=== PATIENT | male | born 1985 | race Caucasian/White ===

== ENCOUNTER 2021-12-18 05:16 | Day surgery (SDC) | payer MEDICARE, MEDICAID, SELFPAY ==
[2021-12-18] VITALS (7 sets, daily range): BP systolic 92–110; BP diastolic 65–71; PULSE 68–81; RESP 15–18; TEMP 36.2–36.6; O2SAT 94–100; BMI 26.2
--- NOTE | 2021-12-18 06:00 | HP.PCM_ITS ---
History and Physical Date of Admission: 12/18/21 35 M who presents to the office today for for evaluation of esophageal dysphagia.? 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 He has multiple other psychiatric disorders that contributes to him regurgitating food resulting in poor dentition, esophageal dysphagia, erosive esophagitis.? Recently was started on Depakote.? 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 He denies any chest pain but does complain of intermittent headaches.? He complains of intermittent nausea.? He denies any chest pain or shortness of breath.? He has no pre-existing history of liver disease.? There is no family history liver disease. All other 16 review of systems are negative except as per body mentioned HPI ROS Const Constitutional: No anorexia, fatigue, fever(s), weight change or sleep problems Eyes Eyes: No change in vision ENT ENT: No abnormal hearing, difficulty swallowing, mouth lesions, tongue swelling or throat swelling Resp Respiratory: No cough or shortness of breath Cardio Cardiology: No chest pain at rest, chest pain with exertion, shortness of breath or dyspnea on exertion Gastro GI: No difficulty swallowing Genitourinary Male: No difficulty urinating or burning urination Musc Musculoskeletal: No joint pain, joint swelling, muscle weakness or decreased muscle mass Skin Skin: No hair loss in leg, yellowing of the eye, itchy eyes, rash, skin ulcer or skin swelling Neuro Neurology: No abnormal hearing, abnormal movements, confusion, unsteady gait/balance or memory loss Psych Psychiatric: No anxiety, No confusion and No memory loss Endo Endocrine: No fatigue or weight change Aller/Imm Allergy/Immunologic: No itchy eyes, throat swelling or tongue swelling Ced/Lymp Hematologic/Lymphatic: No easy bleeding, easy bruising or enlarged lymph nodes Exam Const General: cooperative and comfortable Nutritional Appearance: average body habitus and well nourished HENMT Head: normal to inspection Ears: hearing grossly normal bilaterally Nose: external nose normal Face and sinus: normal facial exam Mouth: oral mucosae normal Throat: posterior oropharynx normal Eyes General: appearance normal, both eyes and all related structures Neck Neck: normal visual inspection Chest Chest palpation & inspection: normal inspection of the chest and normal palpation of entire chest wall Resp Effort & Inspection: normal respiratory effort Auscultation: Bilateral: Clear to Auscultation Cardio Palpation: normal PMI Rate: regular rate Rhythm: regular rhythm GI Inspection: normal to inspection Auscultation: normal bowel sounds Percussion: normal to percussion Palpation: no hepatosplenomegaly Skin General: no rashes or lesions noted Neuro General: patient alert Extrem General: normal to inspection Psych Affect: normal affect Assessment and Plan Assessment and Plan (1) Gastroesophageal reflux disease: ?Plan: Patient likely has gastroesophageal reflux disease secondary to regurgitation causing her esophagitis.? Also differential diagnosis would include erosive esophagitis secondary to bile acid reflux, eosinophilic esophagitis, esophageal dysmotility syndrome.? He should undergo an upper endoscopy evaluate of his upper GI tract.? His mother and pastoral worker were explained alternatives, risk, benefits including not withstanding bleeding, infection, sepsis, perforation, need for Cristian to .? He will have an ASA of 1. (2) Hyperammonemia: ?Status:?Acute ?Plan: Hyperammonia anemia possibly secondary to uric acid cycle deficiency, underlying liver disease, medication induced.? We will check biochemical profile for hemochromatosis, Jaydon's disease, autoimmune hepatitis, alpha-1 antitrypsin disease, we will recheck an ammonia level and orotic acid level in the urine. ? ? ? Orders: Orders Comprehensive Metabolic Profil Today E72.20 - Disorder of urea cycle metabolism, unspecified ? Ferritin Today D64.9 - Anemia, unspecified, E72.20 - Disorder of urea cycle metabolism, unspecified ? Prothrombin Time w/INR Today D68.59 - Other primary thrombophilia, E72.20 - Disorder of urea cycle metabolism, unspecified ? ANCA Today E72.20 - Disorder of urea cycle metabolism, unspecified ? Celiac Disease Profile Today E72.20 - Disorder of urea cycle metabolism, unspecified ? Ceruloplasmin Today E72.20 - Disorder of urea cycle metabolism, unspecified ? Copper, Serum or Plasma Today E72.20 - Disorder of urea cycle metabolism, unspecified ? Haptoglobin Today E72.20 - Disorder of urea cycle metabolism, unspecified ? Trion Today E72.20 - Disorder of urea cycle metabolism, unspecified ? Valproic Acid (Depakene) Level Today E72.20 - Disorder of urea cycle metabolism, unspecified ? Ammonia Today E72.20 - Disorder of urea cycle metabolism, unspecified ? Miscellaneous Lab Procedure Today E72.20 - Disorder of urea cycle metabolism, unspecified ? I have examined the patient and the H&P has been reviewed. There are no clinical changes since date of exam.
[2021-12-18] MEDS: Lactated Ringers 1,000 ML 15 ML IV (06:11)
--- NOTE | 2021-12-18 06:30 | EGD_PTH ---
PATIENT: BAKARI GARDNER LOC: EN U#:[id number] AGE/SX: 35/M ROOM: RE12/18/[address]: Dr. Aristides Rodriguez DO : 1985 BED: DIS: 12/18/2021 SPEC #: [id number] RECD: 12/18/21 14:29 STATUS: YULISSA ABDON #: [id number] ONESIMO: 12/18/21 06:[address]: Aristides Rodriguez DEPT: SURGICAL PATHOLOGY RECD BY: Keyla Helm ENTERED: 12/19/21 08:55 SP TYPE: EGD BIOPSY WILIAM DR: Dr. Josseline Washington DO Tissues: A - Duodenum, NOS B - Esophagus, NOS Procedures: Special Stain Group II Surgery Specimen Level IV Alcian Blue/PAS (control) HEADER OPERATION: EGD with biopsies, dilation (MAC) PRE-OP DIAGNOSIS: GERD, hyperammonemia TISSUE SUBMITTED: A ? Duodenum biopsy, B ? Distal esophagus biopsy MICROSCOPIC DIAGNOSIS A. Duodenum, biopsy: No pathologic change. B. Distal esophagus, biopsy: Gastroesophageal junctional mucosa with chronic inflammation. Focal changes of reflux. No evidence of goblet cell metaplasia. See comment. AM:amanda 12/20/2021 COMMENT B. Alcian blue/PAS stain with matched control supports the above diagnosis. MICROSCOPIC DESCRIPTION Slides are reviewed. GROSS DESCRIPTION A - Received in fixative is one container labeled with the patient's name and designated duodenum. The specimen consists of two irregular fragments of light loja soft tissue that in aggregate measure 0.6 x 0.6 x 0.1 cm. The specimen is totally submitted in one cassette. B - Received in fixative is one container labeled with the patient's name and designated distal esophagus. The specimen consists of two irregular fragments of light loja soft tissue that in aggregate measure 1 x 0.3 x 0.1 cm. The specimen is totally submitted in one cassette. / AM:amanda 12/19/2021 TC:3 CPT: 56152 x2, 05138
--- NOTE | 2021-12-18 06:59 | OP.EGD_ITS ---
Patient Name: Oh Joe Procedure Date: 12/18/2021 6:17 AM Date of : 1985 Age: 35 Procedure: Upper GI endoscopy Indications: Dysphagia Providers: Aristides Rodriguez DO Medicines: Monitored Anesthesia Care Patient Profile: This is a 35 year old male. Refer to note in patient chart for documentation of history and physical. Patient has symptoms of acute dysphagia and dysphagia with solids. Complications: No immediate complications. Procedure: Pre-Anesthesia Assessment: - Prior to the procedure, a History and Physical was performed, and patient medications and allergies were reviewed. The risks and benefits of the procedure and the sedation options and risks were discussed with the patient. All questions were answered and informed consent was obtained. Patient identification and proposed procedure were verified by the physician in the pre-procedure area. Mental Status Examination: alert and oriented. Airway Examination: normal oropharyngeal airway and neck mobility. Respiratory Examination: clear to auscultation. CV Examination: normal. Prophylactic Antibiotics: The patient does not require prophylactic antibiotics. Prior Anticoagulants: The patient has taken no previous anticoagulant or antiplatelet agents. ASA Grade Assessment: II - A patient with mild systemic disease. After reviewing the risks and benefits, the patient was deemed in satisfactory condition to undergo the procedure. The anesthesia plan was to use monitored anesthesia care (MAC). Immediately prior to administration of medications, the patient was re-assessed for adequacy to receive sedatives. The heart rate, respiratory rate, oxygen saturations, blood pressure, adequacy of pulmonary ventilation, and response to care were monitored throughout the procedure. The physical status of the patient was re-assessed after the procedure. After obtaining informed consent, the endoscope was passed under direct vision. Throughout the procedure, the patient's blood pressure, pulse, and oxygen saturations were monitored continuously. The gastroscope was introduced through the mouth, and advanced to the second part of duodenum. The upper GI endoscopy was accomplished without difficulty. The patient tolerated the procedure well. Scope In: 6:45:18 AM Scope Out: 6:51:22 AM Total Procedure Duration Time 0 hours 6 minutes 4 seconds Findings: The Z-line was irregular and was found 38 cm from the incisors. Biopsies were taken with a cold forceps for histology. Verification of patient identification for the specimen was done. Estimated blood loss was minimal. A moderate Schatzki ring was found in the upper third of the esophagus. A guidewire was placed and the scope was withdrawn. Dilation was performed with a Savary dilator with no resistance at 60 Fr. The dilation site was examined following endoscope reinsertion and showed moderate improvement in luminal narrowing. A small hiatal hernia was present. A few small sessile polyps with no bleeding and no stigmata of recent bleeding were found in the gastric fundus. Patchy mildly erythematous mucosa without active bleeding and with no stigmata of bleeding was found in the second portion of the duodenum. Biopsies were taken with a cold forceps for histology. Verification of patient identification for the specimen was done. Estimated blood loss was minimal. Impression: - Z-line irregular, 38 cm from the incisors. Biopsied. - Moderate Schatzki ring. Dilated. - Small hiatal hernia. - A few gastric polyps. - Erythematous duodenopathy. Biopsied. Recommendation: - Discharge patient to home. - Resume previous diet. - Continue present medications. - Await pathology results. Procedure Code(s): --- Professional --- 68492, Esophagogastroduodenoscopy, flexible, transoral; with insertion of guide wire followed by passage of dilator(s) through esophagus over guide wire 08180, 59,51, Esophagogastroduodenoscopy, flexible, transoral; with biopsy, single or multiple CPT copyright 2017 [employer]. All rights reserved. The codes documented in this report are preliminary and upon landscape painter review may be revised to meet current compliance requirements. Aristides Rodriguez DO 12/18/2021 6:58:57 AM This report has been signed electronically. Number of Addenda: 0 Note Initiated On: 12/18/2021 6:17 AM
--- NOTE | 2021-12-18 07:00 | OP.CCLET_ITS ---
12/18/2021 Josseline Washington Re : Upper GI endoscopy procedure for Oh Joe Dear Felix This procedure was performed on Saturday, December 18, 2021. My impressions and recommendations are as follows: Impressions : - Z-line irregular, 38 cm from the incisors. Biopsied. - Moderate Schatzki ring. Dilated. - Small hiatal hernia. - A few gastric polyps. - Erythematous duodenopathy. Biopsied. Recommendations : - Discharge patient to home. - Resume previous diet. - Continue present medications. - Await pathology results. My findings are described in the full procedure note, which is enclosed. If I can be of further assistance, please feel free to contact me at . Sincerely, Aristides Rodriguez, 12/18/2021 6:58:57 AM This report has been signed electronically.
== END 2021-12-18 07:48 | disposition home or self-care (01) ==
LOC: EN 05:18 → AC 05:19
PROVIDERS: PCP Family Medicine; Referring Provider Family Medicine; Visit Provider Internal Medicine Gastroenterology
PROC: 0DJ08ZZ Inspection of Upper Intestinal Tract, Via Natural or Artificial Opening Endoscopic (ICD-10-PCS; CPT 43235; principal; 2021-12-18 06:25)
DX: K44.9 Diaphragmatic hernia without obstruction or gangrene (principal); K22.2 Esophageal obstruction; K31.89 Other diseases of stomach and duodenum; K21.00 Gastro-esophageal reflux disease with esophagitis, without bleeding; K31.7 Polyp of stomach and duodenum; Z79.899 Other long term (current) drug therapy; I10 Essential (primary) hypertension
CPT/HCPCS: 43248; 43239; 88305; 88313; J7120; C1769; J2405

== ENCOUNTER → 2022-02-24 | Outpatient (CLI) | payer MEDICARE, MEDICAID, SELFPAY ==
--- NOTE | 2022-02-24 09:13 | NM_ITS ---
CLINICAL: 36 year old male with history of gastroesophageal reflux. SEMI-SOLID PHASE 99m Tc SULFUR COLLOID GASTRIC EMPTYING STUDY COMPARISON: None available FINDINGS: The patient was administered 1.1 mCi of 99m Tc sulfur colloid mixed with oatmeal and consumed per os. Image acquisitions in the anterior-posterior projections were obtained for 60 minutes. There is prompt visualization of the stomach. There is no gastroesophageal reflux identified. The T ? raw data emptying was calculated to be 23.78 minutes, (Normal: 12-56 minutes). NM/Gastric Emptying Study IMPRESSION: 1. NORMAL 99m Tc sulfur colloid semi-solid phase (oatmeal) gastric emptying imaging examination. A. There is normal and preserved semi-solid phase gastric emptying compared to normal controls. (Tova et al, J Nucl Med Tech 38: 186, 2010). Electronically Signed: Manny Lambert, at 8:13 EST ,
== END | disposition home or self-care (01) ==
PROVIDERS: PCP Family Medicine; Visit Provider Internal Medicine Gastroenterology
DX: K21.9 Gastro-esophageal reflux disease without esophagitis (principal)
CPT/HCPCS: 78264; A9541

== ENCOUNTER → 2022-06-04 | Outpatient (CLI) | payer MEDICARE, MEDICAID, SELFPAY ==
--- NOTE | 2022-06-04 14:59 | ST.MBS ---
Modified Barium Swallow - Patient Information Study Date: 06/04/22 Study Time: 13:00 Direct Billable Minutes: 87 Total Minutes procedure & reportin Diagnosis: Gastric reflux (K21.9) Referring Physician: Aristides Rodriguez Reason for Referral: Objectively assess swallow function, assess risk for aspiration, and determine recommendations for least restrictive diet textures and compensatory strategies to improve safety of swallow. Medical History: The patient is a 36-year-old male with PMH including bipolar disorder, bulimia, cognitive disorder, diverticulitis, HTN, injury of head and neck, non-smoker, schizophrenia, thyroid disease, and TBI (SEE EMR for full PMH). He was referred for MBSS from epic cadence specialists, Dr. Rodriguez, due to concern for difficulty swallowing and aspiration. Per staff member, Waqas, patient experiences regurgitation of meals daily at his correction, [place], in [place]. Per staff member, no concerns for s/s of aspiration or choking when eating and drinking at the home. Current Diet Ordered: Regular textures / Thin liquids Dentition: Natural Teeth, Missing Teeth Mental Status: Impaired - Unable to provide history, frequent repetition required for following simple commands Respiratory Status: Oxygenating on Room Air - Penetration-Aspiration Scale Penetration-Aspiration Scale: OBJECTIVE ASSESSMENT OF SWALLOW FUNCTION (QUANTITATIVE ? PER TRIAL): PENETRATION / ASPIRATION SCALE (FONSECA): 1 = does not enter airway 2 = enters airway/above vocal folds/ejected 3 = enters airway/above vocal folds/not ejected 4 = enters airway/contacts vocal folds/ejected 5 = enters airway/contacts vocal folds/not ejected 6 = enters airway/below vocal folds/ejected 7 = enters airway/below vocal folds/not ejected despite effort 8 = enters airway/below vocal folds/no effort VIDEOFLOROSCOPIC SCALE SCORE (FONSECA): Grade I = aspiration of material that has penetrated into the laryngeal vestibule, intact cough reflex Grade II = aspiration < 10 % of the bolus, intact cough reflex Grade III = aspiration of < 10 % of the bolus, reduced cough reflex or aspiration of > 10 % of the bolus, intact cough reflex Grade IV = aspiration of > 10 % of the bolus, reduced cough reflex - Penetration-Aspiration Scale Score Thin Liquid via teaspoon Result: 1= does not enter airway Thin Liquid via teaspoon Trial 2 Result: 1= does not enter airway Thin Liquid via large single sip from cup Result: 1= does not enter airway Pudding via teaspoon Comment: Unable to score due to the patient moving forward out of view of the fluoroscopy machine. Pudding via teaspoon with esophageal screen Result: 1= does not enter airway Thin Liquid via single sip from straw with esophageal screen Result: 1= does not enter airway - Unable to score initial swallow due to the patient moving forward out of view of the fluoroscopy machine, but second swallow of minimal residues was scored. 1/2 Cookie Result: 1= does not enter airway Thin Liquid via single sip from straw Result: 1= does not enter airway - Unable to score initial swallow due to the patient moving forward out of view of the fluoroscopy machine, but second swallow of minimal residues was scored. Thin Liquid via single sip from straw with esophageal screen Trial 2 Result: 1= does not enter airway - Oral Phase Labial Seal: No Labial Escape Tongue Control During Bolus Hold: Posterior escape of less than half of bolus Bolus Preparation/Mastication: Timely and efficient chewing and mashing Bolus Transport/Lingual Motion: Brisk tongue motion Oral Residue: Trace residue lining oral structures - Pharyngeal Phase Initiation of Pharyngeal Swallow: Bolus head in valleculae Soft Palate Elevation: Trace column of contrast/air between soft palate and pharyngeal wall Laryngeal Elevation: Comp. Superior move thyroid cart w/comp. apprx arytenoid cart-epig pet Anterior Hyoid Excursion: Complete anterior movement Epiglottic Movement: Complete inversion Laryngeal Vestibule Closure at Height of Swallow: Complete; no air/contrast in laryngeal vestibule Pharyngeal Stripping Wave: Present - complete Pharyngoesophageal Segment Opening: Complete distension and complete duration; no obstruction of flow Tongue Base Retraction: Trace column of contrast between tongue base & post. pharyngeal wall Pharyngeal Residue: Trace residue within or on pharyngeal structures - Esophageal Phase Esophageal Clearance: Esophageal retention - Diagnosis/Impression Diagnosis: Oropharyngeal swallow function grossly WNL Impression: Oropharyngeal swallow function appeared grossly WNL. Patient did require mod-max cues during the study to sit still to obtain optimal images of his swallow function. He independently consumed large sips, but demonstrated timely swallow onset and good airway closure during the swallow. No laryngeal penetration or aspiration observed during the study. Trace oral and pharyngeal residues were present. The esophageal phase is marked by esophageal retention of pudding in the mid esophagus, which mostly cleared with use of thin liquid wash. - Recommendations Diet: Regular Textures, Thin Liquids Compensatory Strategies: Small Bites, Small Sips, Slow Rate, Alternate bites/solids and sips/liquids - ~1:1 ratio, Sitting upright, Remain sitting upright for 30 minutes after PO intake Supervision: 1:1 Close Supervision Recommend Repeat Modified Barium Swallow: No Need for Skilled Speech Therapy Services: No Recommended Referrals: GI Consult - Continue to follow with GI regarding slowed esophageal emptying of pudding and daily regurgitation of meals. Education Completed: 1. Described result of evaluation. - Status Active ST Patient: Active - Contact Information [facility] Speech Therapy:: Izzy Huynh M.A. [facility] TE[facility] Speech-Language Pathologist [facility] [address] [place] [address] [email or web address] [phone] 06/04/22 16:35
== END | disposition home or self-care (01) ==
LOC: RAD 12:28
PROVIDERS: PCP Family Medicine; Visit Provider Internal Medicine Gastroenterology
DX: K21.9 Gastro-esophageal reflux disease without esophagitis (principal)
CPT/HCPCS: 74230; 92611

== ENCOUNTER → 2022-06-30 | Outpatient (CLI) | payer MEDICARE, MEDICAID, SELFPAY ==
[2022-06-30 16:37] LABS: Valproic Acid (Depakene) Level 68 ug/mL (50-100)
== END | disposition home or self-care (01) ==
LOC: LAB 15:18
PROVIDERS: PCP Family Medicine; Referring Provider Internal Medicine Gastroenterology; Visit Provider Internal Medicine Gastroenterology
DX: E72.20 Disorder of urea cycle metabolism, unspecified (principal); K21.9 Gastro-esophageal reflux disease without esophagitis
CPT/HCPCS: 36415; 80164; 80178; 82140

== ENCOUNTER → 2022-07-08 | Outpatient (CLI) | payer MEDICARE, MEDICAID, SELFPAY ==
--- NOTE | 2022-07-08 07:34 | RAD_ITS ---
INDICATION: Dysphagia, reflux EXAMINATION/TECHNIQUE: Thick and thin barium oral contrast , gas bubbles, and barium pill were administered to the patient. Total Fluoroscopic Time: 43 seconds AND number of Fluoroscopic Images: 33 spot images Radiation dosage index: 22.57 mGy COMPARISON: None. FINDINGS: No masses or strictures are identified. There is no hiatal hernia. The mucosal pattern is unremarkable. There is normal motility. Reflux was not elicited. Normal passage of the barium pill. RAD/Esophagus Dual Contrast IMPRESSION: Normal esophagram. Electronically Signed: Enrique Damon MD at 13:27 EDT ,
== END | disposition home or self-care (01) ==
LOC: RAD 07:29
PROVIDERS: PCP Family Medicine; Referring Provider Internal Medicine Gastroenterology; Visit Provider Internal Medicine Gastroenterology
DX: K21.9 Gastro-esophageal reflux disease without esophagitis (principal); R13.10 Dysphagia, unspecified
CPT/HCPCS: 74221

== ENCOUNTER → 2024-04-08 | Outpatient (CLI) | payer MEDICARE, MEDICAID, SELFPAY ==
[2024-04-08 12:02] LABS: Erythrocyte Sedimentation Rate < 1 mm/hr (0-20)
[2024-04-08 12:04] LABS: Absolute Lymphocyte Count 0.44 X10^3/uL (0.83-4.51); Absolute Neutrophil Count 7.7 X10^3/uL (2.0-7.7); Basophil# 0.02 X10^3/uL; Basophil% 0.2 % (0-1); Eosinophil# 0.05 X10^3/uL; Eosinophils% 0.6 % (0-5); Hematocrit 41.1 % (40-54); Hemoglobin 13.5 g/dL (13.0-16.5); Lymphocyte # 0.44 X10^3/ul (0.83-4.51); Lymphocyte % 5.1 % (19-41); Mean Corp Hgb Conc 32.8 g/dL (32-36); Mean Corpuscular Hgb 31.8 pg (27.0-32.0); Mean Corpuscular Volume 96.7 fL (80-94); Mean Platelet Vol. 10.6 fl (6.2-12.0); Monocyte# 0.46 X10^3/uL; Monocyte% 5.3 % (0-10); NRBC Flagged by Analyzer 0 % (0-5); Neutrophil # 7.68 X10^3/uL (2.7-7.7); Neutrophil % 88.2 % (47-70); POSITIVE DIFFERENTIAL YES; Platelet Count 169 K/mm3 (150-450); RBC Distribution Width SD 46.3 fl (35.1-43.9); Red Blood Count 4.25 M/mm3 (4.6-6.2); White Blood Count 8.7 K/mm3 (4.4-11.0)
[2024-04-08 12:11] LABS: Valproic Acid (Depakene) Level 99 ug/mL (50-100)
[2024-04-08 12:20] LABS: ALB/GLOB Ratio 1.1 RATIO (0.9-2.4); AST(SGOT) 22 U/L (15-37); Alanine Aminotransfer ALT/SGPT 23 U/L (16-61); Alkaline Phosphatase 42 U/L (45-117); Amylase 74 U/L (25-115); Anion Gap 3 (5-15); BUN 21 mg/dL (7-18); BUN/Creat Ratio 23.9 RATIO (10-20); CPK Total, Creatine Kinase 101 U/L (39-308); CRP < 2.90 mg/L (0.0-3.0); Calcium,Total 9.8 mg/dL (8.5-10.1); Chloride 103 mmol/L (98-107); Creatinine, Serum 0.88 mg/dL (0.70-1.30); EST Glomerular Filtration Rate 103 mL/min (>60); Est Glom Filt Rate - Afr Amer 124 mL/min (>60); Globulin 3.6 g/dL (2.2-4.2); Glucose 101 mg/dL (74-106); Lipase 31 U/L (73-393); Potassium 4.9 mmol/L (3.5-5.1); Protein, Total 7.6 g/dL (6.4-8.2); Sodium Level 137 mmol/L (136-145)
[2024-04-11 17:08] LABS: Gastrin, Serum 163 pg/mL (0-115)
== END | disposition home or self-care (01) ==
LOC: LAB 11:19
PROVIDERS: PCP Family Medicine; Referring Provider Internal Medicine Gastroenterology; Visit Provider Internal Medicine Gastroenterology
DX: K21.9 Gastro-esophageal reflux disease without esophagitis (principal); E72.20 Disorder of urea cycle metabolism, unspecified; D64.9 Anemia, unspecified
CPT/HCPCS: 36415; 80053; 80164; 82140; 82150; 82550; 82941; 83690; 85025; 85652; 86140